=== PATIENT | male | born 1955 | race Hispanic/Latino ===

== ENCOUNTER 2016-12-14 06:46 | Day surgery (SDC) | payer MEDICAID, OTHER ==
[2016-12-14 07:39] LABS: Basophils % (Auto) 1.1 % (0.0-1.8); Eosinophils % (Auto) 1.9 % (0.0-4.3); Hematocrit 37.7 % (35.5-45.6); Hemoglobin 12.6 gm/dl (11.8-15.2); Mean Corpuscular HGB Conc 33 % (32-34); Mean Corpuscular Hemoglobin 31 pg (28-32); Mean Corpuscular Volume 94 fl (84-94); Platelet Count 174 K/mm3 (140-440); Red Blood Count 4.02 M/mm3 (3.65-5.03); Red Cell Distribution Width 14.5 % (13.2-15.2); White Blood Count 6.4 K/mm3 (4.5-11.0)
[2016-12-14 07:50] LABS: INR 0.97 (0.87-1.13)
[2016-12-14 07:52] LABS: BUN/Creatinine Ratio 18.84; Chloride 101.7 mmol/L (98-107); Potassium 4.6 mmol/L (3.6-5.0)
[2016-12-14] MEDS ORDERED: NACL 0.9% 500 ML 500 ML IV SCH (08:00)
[2016-12-14] MEDS ORDERED: HEPARIN 10,000 UNITS/10 ML ONE (11:48)
[2016-12-14] MEDS ORDERED: HEPARIN/NS 5000 UNIT/500ML(CATH LAB) 1,000 ML IR ONE (11:48)
[2016-12-14] MEDS ORDERED: NITROGLYCERIN SYRINGE 3 ML ONE (12:05)
[2016-12-14] MEDS: VERSED ONE ×2 (12:16→12:27)
[2016-12-14] MEDS: SUBLIMAZE ONE ×2 (12:17→12:27)
[2016-12-14] MEDS: XYLOCAINE 2% INFILTRATI ONE ×2 (12:17→12:32)
[2016-12-14] MEDS ORDERED: ULTRAM PO PRN (13:09)
--- NOTE | 2016-12-14 13:09 | Discharge Summary ---
Short Stay Discharge Plan Activity: advance as tolerated Weight Bearing Status: Partial Weight Bearing Diet: low fat, low cholesterol, low salt, diabetic Wound: keep clean and dry Special Instructions: no heavy lifting (3 days) Follow up with: PAT CARL MD [Primary Care Provider] - 7 Days TONG ROTHMAN MD [Staff Physician] - 7 Days
[2016-12-14] MEDS ORDERED: NACL 0.9% 500 ML 500 ML IV ONE (13:34)
--- NOTE | 2016-12-14 13:46 | Cardiac Catherization Report ---
CARDIAC CATHETERIZATION REASON FOR PROCEDURE: The patient is a 61-year-old man with a history of 5-way coronary artery bypass in 2002 at [facility]. He was referred for cardiac catheterization for chest pain assessment. On presentation, we note significant renal insufficiency, creatinine of 2.5. This appears to be his baseline over several years. His atm mechanic is Dr. Al. We discussed with the patient extensively additional risk of contrast nephropathy, which he understands and wishes to proceed. Our plan is after initial IV hydration, to use minimal contrast load just for coronary angiography. Visipaque was also selected for this procedure. DESCRIPTION OF PROCEDURE: The patient was prepped and draped in a sterile fashion, after informed consent. The right femoral artery was entered using the Seldinger technique followed by placement of a 6-Pakistani sheath. Selective left and right coronary angiography was performed using #4 right and left Vita catheters. The right Vita was used for saphenous vein angiography. A left internal mammary artery graft catheter was used for left internal mammary angiography. The catheters were removed, sheath removed, and hemostasis achieved using an Angio-Seal device. The patient was returned to the postprocedure unit in stable condition. There were no complications. FINDINGS: HEMODYNAMICS: Ascending aortic pressure was 157/87. CORONARY ANGIOGRAPHY: The left main coronary artery contained mild irregularities. The left anterior descending artery was completely occluded at its ostium. This was a chronic total occlusion. The left internal mammary artery graft to the LAD was patent with good anastomosis to the mid LAD, and good distal runoff into a small caliber, diffusely diseased mid and distal LAD. The saphenous vein graft was anastomosed to the proximal diagonal branch of the LAD. This vein graft was patent with good anastomosis to the diagonal branch and good distal runoff. The [place] circumflex system was a relatively small caliber system, and not significantly diseased. Mild irregularities were noted of the obtuse marginal branches. A saphenous vein graft was occluded at its ostium. This graft was presumably to target in the circumflex system and a graft report is not available to confirm the intended target. Nevertheless, as reported the circumflex system was free of significant disease. The right coronary artery was dominant. This vessel was completely occluded at its origin. The saphenous vein graft to the right coronary system was patent. This vein graft was anastomosed to the posterior descending branch, and perfused a small caliber, moderately diseased posterior descending. We also noted a 40-50% stenosis of the mid body of the vein graft. Beyond the origin of the posterior descending branch, the distal right coronary artery was again occluded. There was collateralization of a small to medium sized posterior left ventricular branch from the left coronary system. Left ventricular angiography was not performed, total contrast used for the procedure was 70 mL of Visipaque. CONCLUSION: 1. Severe multivessel coronary artery disease as above. 2. Patent bypass grafts x 3. 3. Left internal mammary artery graft to the LAD is patent, with good anastomosis and good distal runoff into a diffusely diseased small caliber mid and distal LAD. 4. Patent saphenous vein graft to the proximal diagonal branch of the LAD. 5. Patent saphenous vein graft to the posterior descending branch of the distal right coronary artery. This vein graft has a 40-50% mid body stenosis. 6. Occluded saphenous vein graft, with presumably intended targets to the circumflex system. Notably, the [place] circumflex system on this angiography has minimal to no significant disease. RECOMMENDATION: 1. Aggressive risk factor modification. 2. Medical therapy for small vessel disease of the mid distal LAD and the distal posterolateral branch of the right coronary system. JOB# [id number] JENNIFER/SHELBY
[2016-12-14] MEDS ORDERED: NACL 0.9% 1000 ML 1,000 ML IV SCH (14:00)
[2016-12-14 16:58] VITALS: BP 142/42
== END 2016-12-14 17:25 | disposition home or self-care (01) ==
LOC: OPU 06:46
PROVIDERS: ATTEND Internal Medicine Cardiovascular Disease
DX: I25.810 Atherosclerosis of coronary artery bypass graft(s) without angina pectoris (principal); I25.82 Chronic total occlusion of coronary artery; I12.9 Hypertensive chronic kidney disease with stage 1 through stage 4 chronic kidney disease, or unspecified chronic kidney disease; N18.3 Chronic kidney disease, stage 3 (moderate); E11.22 Type 2 diabetes mellitus with diabetic chronic kidney disease; E78.5 Hyperlipidemia, unspecified; E66.01 Morbid (severe) obesity due to excess calories; Z68.42 Body mass index [BMI] 45.0-49.9, adult; Z87.891 Personal history of nicotine dependence
CPT/HCPCS: 36415; 80048; 82962; 85025; 85610; 85730; 93005; 93010; 93458; 96360; 96361; C1760; C1894; J1644; J2250; J3010; J7040; Q9967